=== PATIENT | female | born 1970 | race African-American/Black ===

== ENCOUNTER 2021-11-05 10:40 | Emergency (ER) | payer MEDICARE, SELFPAY ==
[2021-11-05 10:50] VITALS: BP 150/84; PULSE 81; RESP 18; TEMP 36.9; O2SAT 98; BMI 34.3
--- NOTE | 2021-11-05 11:22 | ED_ITS ---
HPI - Neuro Symptoms/Deficit General Chief Complaint: Stroke Stated Complaint: Blood clots in head Time Seen by Provider: 11/05/21 11:22 Source: patient and old records reviewed Mode of arrival: ambulatory Limitations: no limitations History of Present Illness HPI Narrative: 50 yo female with hx of HTN, DM, HLD, stroke yesterday at [facility] [place] ischemic in nature yesterday at 6pm symptoms were R sided hemiparesis that is improving. She did not receive tPa. She was kept overnight - had MRI and sounds like CTA. She left at 4am due to a roommate who woke her up with coughing and she became scared as she was told she would not have a roommate and is worried about COVID. Patient is not sure what medications she was started out. Unsure what caused the stroke. She admits she is not always compliant with her BP medications. Her R face and upper tooth are also painful and swollen she is concerned for tooth infection Onset (ago): day(s) (yesterday ) Timing confirmed by: family member Location: right arm and right leg History of same: No Severity: mild Quality: weak Relieving factors: time Exacerbating factors: none Context: sudden onset On Anticoagulants: No Associated symptoms: other (mild headache and toothache - r upper jaw) Treatments Prior to Arrival: other (MRI, CT head, CTA at [facility] [place] left AMA 4am) Related Data Previous Rx's Medication Instructions Recorded amoxicillin 875 mg-potassium 1 tab PO BID #14 tabs 11/05/21 clavulanate 125 mg tablet Allergies Allergy/AdvReac Type Severity Reaction Status Date / Time aspirin [ASA] Allergy Unknown SWELLING Unverified 11/08/19 15:04 Review of Systems Review of Systems: Constitutional : No Fever, No Chills, No Fatigue ENT/Mouth : No sore throat, No Rhinorrhea, pos dental pain, pos jaw pain Eyes: No Eye Pain, No Swelling, No Redness Cardiovascular : No Chest Pain, No SOB, No Dyspnea on Exertion Respiratory : No Cough, No Sputum Gastrointestinal : No Nausea, No Vomiting, No Diarrhea, No abdominal Pain Genitourinary : No Dysuria, No Urinary Frequency, No Hematuria, Musculoskeletal : No joint pain, No Myalgias, No Joint Swelling Skin : No Skin Lesions, No rash Neuro : pos Weakness, No Numbness, No Dizziness, positive Headache Psych : No Anxiety/Panic, No Depression Heme/Lymph: No Bruising, No Bleeding,No Lymphadenopathy Endocrine : No Polyuria, No Polydipsia All other systems reviewed and are negative [facility] Past Medical History Attestation statement: The following information was validated with the patient. Medical History Diabetes HTN (hypertension) Hyperlipidemia Stroke Social History Social History (Updated 11/05/21 @ 11:48 by Terri Headley DO) Patient Tobacco Use Status: Current everyday Tobacco user Advance Directives: No Advance Directives Information Provided: No Physical Exam 2 Vital Signs: Vital Signs: Last Vital Signs Temp 98.4 F 11/05/21 10:50 Pulse 81 11/05/21 10:50 Resp 18 11/05/21 10:50 BP 150/84 H 11/05/21 10:50 Pulse Ox 98 11/05/21 10:50 O2 Del Method 11/05/21 10:50 BMI result Body Mass Index 34.3 Appearance: Alert. Oriented X3. No acute distress. Eyes: Pupils equal, round and reactive to light. ENT: Pharynx normal. R upper molars are decayed she has mild fluctuance to the gum and hyperemia but no bettie abscess or collection to drain, there is mild cheek swelling, no trismus Neck: Normal inspection. Neck supple. CVS: Normal heart rate and rhythm. Pulses normal. Respiratory: No respiratory distress. Breath sounds normal. Abdomen: Soft and nontender. Skin: Skin warm and dry. Normal skin color. Normal skin turgor. Extremities: No lower extremity edema. No calf ttp Neuro: Oriented X 3. RUE 4+/5 RLE 4+/5. No sensory deficit. Course Course Course Narrative: patient denied drug use to me but [facility] [place] notes state the patient is on suboxone for opiate dependence - MRI was negative at [facility] [place] [address]am today official CT read - no infarct, no LVO MRI: official read no infarct - will not give plavix at this time no stroke on MRI or CT scan at outside facility. MDM - Neuro Symptoms/Deficit MDM Narrative Medical decision making narrative: 50 yo female with hx of HTN, DM, HLD, stroke yesterday here with c/o dental pain for which I do not see an abscess - IV zosyn ordered along with morphine. She also had a stroke yesterday initial CT head negative, CTA no LVO, started on loading dose of 300mg of plavix - MRI was negative at 120am mild hyperintense foci in white mattter. At this time patient has mild R sided deficits would continue plavix 75mg and treat infection Lab Data Result diagrams: 11/05/21 11:53 11/05/21 11:54 Labs: Lab Results 11/05/21 11/05/21 11/05/21 Range/Units 11:53 11:53 11:53 WBC 11.2 H (4.8-10.8) X10*3/uL RBC 5.23 (4.20-5.50) X10*6/uL Hgb 14.1 (12.0-16.0) g/dl Hct 42.4 (37.0-47.0) % MCV 81.1 (80.0-98.0) fL MCH 27.0 (27.0-33.0) pg MCHC 33.3 (31.0-35.0) g/dl RDW 14.2 (11.0-16.0) % Plt Count 227 (160-400) X10*3/uL MPV 10.2 (9.4-12.3) fL Immature Gran % (Auto) 0.4 (0.0-0.4) % Neut % (Auto) 79.9 H (45-73) % Lymph % (Auto) 15.9 L (20-40) % [place] % (Auto) 3.3 (2-11) % Eos % (Auto) 0.1 (0-4) % Baso % (Auto) 0.4 (0-2) % Lymph # (Auto) 1.8 (1.2-4.9) X10*3/uL [place] # (Auto) 0.4 (0.1-1.2) X10*3/uL Eos # (Auto) 0.0 (0.0-0.4) X10*3/uL Baso # (Auto) 0.0 (0.0-0.2) X10*3/uL Abs Immat Gran (auto) 0.05 H (0.00-0.03) X10*3/uL Absolute Neuts (auto) 8.9 H (2.0-8.3) x10*3/uL Absolute Nucleated RBC 0.000 (0.0-0.012) X10*3/uL Nucleated RBC % (auto) 0.0 (0.0-0.2) /100WBC PT 11.1 (10.0-13.1) SEC INR 1.0 (0.9-1.1) APTT 32.2 (26.0-36.4) SEC Sodium (135-145) mmol/L Potassium (3.3-5.1) mmol/L Chloride (96-108) mmol/L Carbon Dioxide (22-29) mmol/L Anion Gap (12-20) BUN (9-16) mg/dL Creatinine (0.5-1.4) mg/dL Estim Creat Clear Calc Estimated GFR Random Glucose (60-115) mg/dL Lactic Acid 1.3 (0.5-2.0) mmol/L Calcium (8.4-10.2) mg/dL Magnesium (1.6-2.6) mg/dL Total Bilirubin (0.0-1.0) mg/dL Direct Bilirubin (0.0-0.5) mg/dL AST (5-31) U/L ALT (0-31) U/L Alkaline Phosphatase (39-117) U/L Total Protein (6.5-8.0) g/dL Albumin (3.5-5.0) g/dL COVID-19 ([facility]) (Negative) COVID-19 Clin Com 11/05/21 11/05/21 Range/Units 11:53 11:54 WBC (4.8-10.8) X10*3/uL RBC (4.20-5.50) X10*6/uL Hgb (12.0-16.0) g/dl Hct (37.0-47.0) % MCV (80.0-98.0) fL MCH (27.0-33.0) pg MCHC (31.0-35.0) g/dl RDW (11.0-16.0) % Plt Count (160-400) X10*3/uL MPV (9.4-12.3) fL Immature Gran % (Auto) (0.0-0.4) % Neut % (Auto) (45-73) % Lymph % (Auto) (20-40) % [place] % (Auto) (2-11) % Eos % (Auto) (0-4) % Baso % (Auto) (0-2) % Lymph # (Auto) (1.2-4.9) X10*3/uL [place] # (Auto) (0.1-1.2) X10*3/uL Eos # (Auto) (0.0-0.4) X10*3/uL Baso # (Auto) (0.0-0.2) X10*3/uL Abs Immat Gran (auto) (0.00-0.03) X10*3/uL Absolute Neuts (auto) (2.0-8.3) x10*3/uL Absolute Nucleated RBC (0.0-0.012) X10*3/uL Nucleated RBC % (auto) (0.0-0.2) /100WBC PT (10.0-13.1) SEC INR (0.9-1.1) APTT (26.0-36.4) SEC Sodium 134 L (135-145) mmol/L Potassium 4.6 (3.3-5.1) mmol/L Chloride 96 (96-108) mmol/L Carbon Dioxide 26 (22-29) mmol/L Anion Gap 17 (12-20) BUN 9 (9-16) mg/dL Creatinine 0.94 (0.5-1.4) mg/dL Estim Creat Clear Calc 78.0 Estimated GFR > 60 Random Glucose 355 H* (60-115) mg/dL Lactic Acid (0.5-2.0) mmol/L Calcium 10.0 (8.4-10.2) mg/dL Magnesium 1.6 (1.6-2.6) mg/dL Total Bilirubin 0.4 (0.0-1.0) mg/dL Direct Bilirubin 0.2 (0.0-0.5) mg/dL AST 15 (5-31) U/L ALT 19 (0-31) U/L Alkaline Phosphatase 184 H (39-117) U/L Total Protein 8.2 H (6.5-8.0) g/dL Albumin 4.5 (3.5-5.0) g/dL COVID-19 ([facility]) Negative (Negative) COVID-19 Clin Com See Note ECG Data Attestation: I personally reviewed and interpreted this ECG as follows: ECG interpretation date: 11/05/21 ECG interpretation time: 11:53 Interpretation: Rate: 70 Rhythm: NSR [place]: normal Normal P waves. Normal HARVEY. Normal QRS complex. ST T wave : no RACHEL, inverted V1-V2 qTC: normal prior studies: no acute ischemia The study has been interpreted contemporaneously by me. . Discharge Plan Discharge Clinical Impression: Dental infection, Acute facial pain, Acute hyperglycemia Patient Disposition: Home, Self-Care Instructions: Dental Abscess (ED), Acute Headache (ED), Diabetic Hyperglycemia (ED) Additional Instructions: return to ED for any worsening symptoms or concerns your MRI at [facility] today did not show an acute stroke please follow up with your doctor next week eat yogurt daily with antibiotics Prescriptions: New amoxicillin-pot clavulanate 875-125 mg tablet 1 tab PO BID Qty: 14 0RF Referrals: Physician,Unknown J [Primary Care Provider] - (primary care doctor next week)
[2021-11-05 12:04] LABS: MANUAL DIFF FLAG NO
[2021-11-05 12:12] LABS: Basophils Percent Auto 0.4 % (0-2); Eosinophils Percent Auto 0.1 % (0-4); Hematocrit 42.4 % (37.0-47.0); Hemoglobin 14.1 g/dl (12.0-16.0); Imm Gran Abs Auto 0.05 X10*3/uL (0.00-0.03); Imm Gran Pct Auto 0.4 % (0.0-0.4); Lymphocytes Absolute Auto 1.8 X10*3/uL (1.2-4.9); Lymphocytes Percent Auto 15.9 % (20-40); Mean Corpuscular HGB Conc 33.3 g/dl (31.0-35.0); Mean Corpuscular Volume 81.1 fL (80.0-98.0); Mean Platelet Volume 10.2 fL (9.4-12.3); Monocytes Absolute Auto 0.4 X10*3/uL (0.1-1.2); Monocytes Percent Auto 3.3 % (2-11); Neutrophils Absolute Auto 8.9 x10*3/uL (2.0-8.3); Neutrophils Percent Auto 79.9 % (45-73); Platelet Count 227 X10*3/uL (160-400); Prothrombin Time 11.1 SEC (10.0-13.1); Red Blood Count 5.23 X10*6/uL (4.20-5.50); Red Cell Distribution Width 14.2 % (11.0-16.0); White Blood Count 11.2 X10*3/uL (4.8-10.8)
[2021-11-05 12:15] LABS: Partial Thromboplastin Time 32.2 SEC (26.0-36.4)
[2021-11-05 12:16] LABS: COVID-19 Test Negative (Negative)
[2021-11-05 12:19] LABS: Lactic Acid 1.3 mmol/L (0.5-2.0)
[2021-11-05] MEDS: ondansetron HCL 4 MG/2 ML VIAL IVPUSH (12:24)
[2021-11-05] MEDS: Morphine Sulfate 4 MG/ML CARTRIDGE IVPUSH (12:24)
--- NOTE | 2021-11-05 12:24 | MHC.STROKE ---
1130 RECE[address] A T[address] FROM DR KNIGHT, ? NEW STROKE, PATIENT SIGNED OUT AMA FROM [facility] THIS MORNING. RECORDS OBTAINED AND REVIEWED WITH DR. KNIGHT. CT OFFICIAL READ, NO STROKE NO BLEED, CTA H/N NO LVO SOME ATHEROSCLEROSIS. MRI NO NEW STROKE, MICROVASCULAR DISEASE IN [id number]. PATIENT WAS GIVEN PLAVIX AT [facility], ASPIRIN ALLERGY, DENIED ETOH, DRUGS ALTHOUGH SHE IS ON SUBOXONE. REFER TO RECORDS SENT FROM [facility].
[2021-11-05 12:31] LABS: Alanine Aminotransferase 19 U/L (0-31); Albumin Level 4.5 g/dL (3.5-5.0); Alkaline Phosphatase 184 U/L (39-117); Anion Gap 17 (12-20); Aspartate Amino Transferase 15 U/L (5-31); Bilirubin Direct 0.2 mg/dL (0.0-0.5); Bilirubin Total 0.4 mg/dL (0.0-1.0); Blood Urea Nitrogen 9 mg/dL (9-16); Carbon Dioxide 26 mmol/L (22-29); Chloride 96 mmol/L (96-108); Estimated Glomerular Filt Rate > 60; Glucose Random 355 mg/dL (60-115); Magnesium 1.6 mg/dL (1.6-2.6); Potassium 4.6 mmol/L (3.3-5.1); Sodium 134 mmol/L (135-145); Total Protein 8.2 g/dL (6.5-8.0)
[2021-11-05] MEDS: Insulin Regular, Human 100 UNIT/ML 3 ML VIAL IVPUSH (13:11)
[2021-11-05] MEDS: Acetaminophen 325 MG TABLET 650 MG PO (13:12)
[2021-11-05] MEDS: Piperacillin Sodium/Tazobactam 3.375 GM in 0.9 % Sodium Chloride 50 ML IV (13:12)
[2021-11-05] MEDS: Buprenorphine/Naloxone 8/2 mg FILM 1 FILM SUBLINGUAL (13:12)
[2021-11-05 13:32] LABS: Amphetamine Screen Urine Not Detected (Not Detect); Barbiturates, Urine Not Detected (Not Detect); Benzodiazepines Screen Urine Not Detected (Not Detect); Cannabinoid Screen Urine Not Detected (Not Detect); Cocaine Screen Urine Not Detected (Not Detect); Fentanyl, urine Not Detected (Not Detect); Opiate Screen Urine POSITIVE (Not Detect); Phencyclidine Screen Urine Not Detected (Not Detect)
[2021-11-05 14:06] LABS: Glucose, Whole Blood 284 mg/dL (60-115)
--- NOTE | 2021-11-05 14:19 | ECG_ITS ---
Test Reason : stroke Blood Pressure : / mmHG Vent. Rate : 070 BPM Atrial Rate : 070 BPM P-R Int : 170 ms QRS Dur : 074 ms QT Int : 370 ms P-R-T Axes : 044 034 039 degrees QTc Int : 399 ms Normal sinus rhythm Low voltage QRS Borderline ECG No previous ECGs available Referred By: Terri Headley Electronically Signed By:LORRIE PRESLEY
[2021-11-05 15:14] VITALS: BP 154/76; PULSE 78; RESP 19; O2SAT 97
== END 2021-11-05 15:15 | disposition home or self-care (01) ==
PROVIDERS: Emergency Provider Emergency Medicine
DX: K04.7 Periapical abscess without sinus (principal); R51.9 Headache, unspecified; E11.65 Type 2 diabetes mellitus with hyperglycemia; I10 Essential (primary) hypertension; Z20.822 Contact with and (suspected) exposure to COVID-19; Z79.899 Other long term (current) drug therapy; F17.200 Nicotine dependence, unspecified, uncomplicated; Z71.6 Tobacco abuse counseling
CPT/HCPCS: 36415; 80048; 80076; 80307; 82947; 83605; 83735; 85025; 85610; 85730; 87040; 87635; 93005; 96374; 96375; 99284; J2270; J2405; J2543